=== PATIENT | male | born 1940 | race Caucasian/White ===

== ENCOUNTER 2017-02-05 08:11 | Emergency (ER) | payer MEDICARE | END 2017-02-05 09:40 | disposition home or self-care (01) | LOC: D.ER 08:11 | DX: S80.812A Abrasion, left lower leg, initial encounter (principal); W17.89XA Other fall from one level to another, initial encounter; Y93.89 Activity, other specified; Y92.89 Other specified places as the place of occurrence of the external cause; S80.12XA Contusion of left lower leg, initial encounter; S39.012A Strain of muscle, fascia and tendon of lower back, initial encounter; E78.5 Hyperlipidemia, unspecified; G47.00 Insomnia, unspecified ==

== ENCOUNTER → 2017-02-11 | Emergency (ER) | payer MEDICARE | LOC: D.ER 09:21 | DX: S81.802A Unspecified open wound, left lower leg, initial encounter (principal); X58.XXXA Exposure to other specified factors, initial encounter; Y93.9 Activity, unspecified; R22.42 Localized swelling, mass and lump, left lower limb; E78.5 Hyperlipidemia, unspecified; G47.00 Insomnia, unspecified ==